=== PATIENT | female | born 1990 | race African-American/Black ===

== ENCOUNTER 2023-05-31 15:12 | Observation (INO) | payer MEDICAID ==
[2023-05-31] MEDS ORDERED: PREN-96 PO (17:13)
[2023-05-31] MEDS ORDERED: LABE100T4 PO (17:13)
== END 2023-05-31 17:21 | disposition home or self-care (01) ==
LOC: EDBD 15:12 → LDRP 15:12
PROVIDERS: ADMIT Obstetrics & Gynecology; ATTEND Obstetrics & Gynecology
DX: O13.3 Gestational [pregnancy-induced] hypertension without significant proteinuria, third trimester (principal); O24.419 Gestational diabetes mellitus in pregnancy, unspecified control; Z3A.35 35 weeks gestation of pregnancy
CPT/HCPCS: 59025; 81002; 94760; G0378